=== PATIENT | female | born 1985 | race Two or more races ===

== ENCOUNTER 2023-12-18 13:41 | Inpatient (IN) ==
[2023-12-18] MEDS ORDERED: NUBAIN INJ 20 MG AMP IVP PRN (13:54)
[2023-12-18] MEDS ORDERED: ZOFRAN INJ 4 MG VIAL IVP PRN (13:54)
[2023-12-18] MEDS ORDERED: REGLAN INJ 10 MG VIAL IVP PRN (13:54)
[2023-12-18] MEDS: LR 1,000 ML IV 1,000 ML IV ONE ×2 (14:00→16:01)
[2023-12-18] MEDS: LR 1,000 ML IV 1,000 ML IV SCH (14:00)
[2023-12-18] MEDS ORDERED: D5 1/2 NS 1,000 ML 1,000 ML IV SCH (14:00)
[2023-12-18 14:25] LABS: BASOPHILS % (AUTO) 0.5 % (0.2-1.0); EOSINOPHILS % (AUTO) 0.3 % (0.9-2.9); HEMOGLOBIN 11.2 g/dL (12.0-16.0); LYMPHOCYTES # (AUTO) 0.9 X10^3/uL (1.3-2.9); LYMPHOCYTES % (AUTO) 10.6 % (21.0-51.0); MEAN CORPUSCULAR VOLUME 84.9 fL (80.0-100.0); MEAN PLATELET VOLUME 9.1 fL (7.4-11.0); MONOCYTES # (AUTO) 0.4 x10^3/uL (0.3-0.8); MONOCYTES % (AUTO) 4.5 % (0.0-13.0); NEUTROPHILS # (AUTO) 7.1 x10^3/uL (2.2-4.8); NEUTROPHILS % (AUTO) 84.1 % (42.0-75.0); PLATELET COUNT 297 X10^3/uL (150.0-450.0); RED CELL DISTRIBUTION WIDTH 14.3 % (11.6-16.5); WHITE BLOOD COUNT 8.5 X10^3/uL (3.6-10.0)
[2023-12-18 14:31] LABS: BLOOD UREA NITROGEN 9 mg/dL (7-18); CALCIUM 8.5 mg/dL (8.5-10.1); CARBON DIOXIDE 23.7 mmol/L (21-32); CHLORIDE 103 mmol/L (98-107); CREATININE 0.39 mg/dL (0.55-1.02); GLUCOSE 95 mg/dL (65-99); POTASSIUM 3.7 mmol/L (3.5-5.1); SODIUM 135 mmol/L (136-145); eGFR NON BLACK RACES > 60 (>60)
[2023-12-18 14:37] LABS: BILIRUBIN,URINE 1+ (NEGATIVE); BLOOD/HEMOGLOBIN,URINE 4+ (NEGATIVE); GLUCOSE, URINE NEGATIVE (NEGATIVE); KETONES,URINE NEGATIVE (NEGATIVE); LEUKOCYTE ESTERASE ,URINE 1+ (NEGATIVE); NITRITES,URINE NEGATIVE (NEGATIVE); PROTEIN,URINE 2+ (NEGATIVE); UROBILINOGEN,URINE 1+ (NORMAL)
[2023-12-18] MEDS: NUBAIN INJ 200 MG VIAL MULTIDOSE ONE (14:43)
[2023-12-18 14:54] LABS: APPEARANCE,URINE SLIGHTLY HAZY (CLEAR); COLOR,URINE AMBER (YELLOW)
[2023-12-18 14:55] LABS: BACTERIA,URINE TRACE /HPF (NEGATIVE); RBC,URINE 0-2 /HPF (0-3); SQUAMOUS EPITHELIAL CELL,UR MODERATE /HPF (NEGATIVE)
[2023-12-18] MEDS: OXYTOCIN 20 UNIT/1,000 ML-NS 20 UNIT/1,000 ML PLAST..BAG IV PRN (15:05)
[2023-12-18] MEDS: BETADINE SOLN ONE (17:12)
[2023-12-18] MEDS: PITOCIN IVP ONE (17:50)
[2023-12-18] MEDS ORDERED: MOTRIN TAB 800 MG PO ONE (18:25)
[2023-12-18] MEDS: OXYTOCIN 20 UNIT/1,000 ML-NS 20 UNIT/1,000 ML PLAST..BAG IV SCH (18:29)
[2023-12-18] MEDS: XYLOCAINE 1 % (PLAIN) ONE (18:29)
[2023-12-18] MEDS: MOTRIN TAB 800 MG PO PRN (18:30)
[2023-12-18] MEDS ORDERED: MILK OF MAGNESIA PO PRN (19:17)
[2023-12-18] MEDS ORDERED: DERMOPLAST PAIN RELIEF SPRAY TOP PRN (19:17)
[2023-12-18] MEDS ORDERED: AMBIEN PO PRN (19:17)
[2023-12-19 05:52] LABS: HEMATOCRIT 29.3 % (36.0-47.0); HEMOGLOBIN 9.6 g/dL (12.0-16.0)
[2023-12-19] MEDS: PRENATAL PLUS PO SCH (08:24)
[2023-12-19 08:25] VITALS: RESP 18
[2023-12-19 08:29] VITALS: O2SAT 97
[2023-12-19] MEDS: NS 100 ML IV 100 ML with VENOFER 400 MG IV ONE (10:50)
[2023-12-19 16:54] VITALS: BP 114/56; PULSE 75; TEMP 97.8
== END 2023-12-19 20:45 | disposition home or self-care (01) | DRG 807 ==
LOC: LD 13:41 → MED/SURG 18:56
PROVIDERS: ADMIT Obstetrics & Gynecology Obstetrics; ATTEND Obstetrics & Gynecology Obstetrics
DX: Z3A.38 38 weeks gestation of pregnancy; Z37.0 Single live birth; O80 Encounter for full-term uncomplicated delivery